=== PATIENT | male | born 1955 | race Caucasian/White ===

== ENCOUNTER → 2018-10-19 10:05 | Outpatient (CLI) | payer OTHER, SELFPAY ==
[2018-10-17 09:02] VITALS: BMI 18.8
--- NOTE | 2018-10-19 10:06 | NM_ITS ---
CLINICAL: 63-year-old male with apparent history of adenocarcinoma of unknown primary. WHOLE BODY 99m Tc MDP RADIONUCLIDE BONE SCINTIGRAPHY COMPARISON: None available FINDINGS: Following the intravenous administration of 26.0 mCi of 99m Tc MDP, whole body bone images reveal: 1. Increased radiopharmaceutical concentration is identified in the region of the third-fourth thoracic vertebra and distal left humeral metaphysis. 2. Enhanced tracer concentration is demonstrated in the sternoclavicular compartment of the left shoulder, acromioclavicular compartments of both shoulders, the left hip. 3. The remaining skeletal structures are scintigraphically unremarkable with normal-appearing renal images and urinary bladder activity identified. NM/Bone Scan Whole Body IMPRESSION: 1. The increase in radiopharmaceutical concentration defined in the third-fourth thoracic vertebra and distal left humeral metaphysis may be further investigated with plain film radiography secondary to the intensity of uptake. 2. Degenerative arthritis is otherwise expressed in the bilateral shoulders, the left hip. Electronically Signed: Jerman Upton DO at 10:54 EDT Tel , Service support ,
== END ==
PROVIDERS: Family Provider Internal Medicine Infectious Disease; PCP Internal Medicine Infectious Disease; Referring Provider Internal Medicine Medical Oncology; Visit Provider Internal Medicine Medical Oncology
DX: C80.1 Malignant (primary) neoplasm, unspecified (principal); R63.4 Abnormal weight loss
CPT/HCPCS: 78306

== ENCOUNTER → 2018-10-24 08:22 | Outpatient (CLI) | payer OTHER, SELFPAY ==
[2018-10-17 09:02] VITALS: BMI 18.8
--- NOTE | 2018-10-24 08:27 | CT_ITS ---
STUDY: CT CHEST WITH CONTRAST REASON FOR EXAM: Male, 63 years old. Liver metastases. Unknown primary. RADIATION DOSAGE (If Supplied By Facility): CTDIvol = ( 13.08 ) mGy, DLP = ( 772.13 ) mGycm TECHNIQUE: Transaxial imaging was performed following intravenous administration of 100 IV Isovue 300. Multiplanar coronal and sagittal images were reformatted. Individualized dose optimization techniques were used for this CT. COMPARISON: Bone scan, October 19, 2018. CT of the abdomen and pelvis, October 24, 2018. FINDINGS: The lungs are hyperexpanded. There is no visualized mass or infiltrate within the lungs.. There is no demonstrated pleural abnormality. Normal heart and pericardium. There is prevascular and precarinal lymphadenopathy. The largest node, in the precarinal region, measures 1.5 x 0.7 x 0.8 cm. Normal hilar regions. Normal enhanced pulmonary arteries. Normal aorta arch and descending thoracic aorta. There are multi-level degenerative changes of the thoracic spine. There is a soft tissue mass in the left lateral aspect of C3 extending into the posterior elements. This is thought to correlate with the increased activity seen in this area on the bone scan. There is compromise on the left L3-4 neural foramen. In slight transverse narrowing of the spinal canal. There is also expansion of the right humeral neck with thinning of the anterior cortex. No abnormal activity is seen in this area on the bone scan. There is thickening of the distal esophagus versus hiatal hernia. This appears to extend area of the GE junction. Evaluation with endoscopy or barium swallow is recommended. There are multiple hypoechoic foci within the liver consistent with metastatic disease. CT/Chest WITH Contrast IMPRESSION: 1. Hyperexpansion of the lungs. Question mild emphysematous change. There is no mass or infiltrate. 2. Nonspecific mediastinal lymphadenopathy. 3. Expansile lesion within the L3 vertebral body extending into the posterior elements consistent with metastatic disease. 4. Mild cortical thinning of the upper right humerus with questionable expansion of the humeral neck. No abnormality is seen in the bone scan this area. 5. Thickened distal esophagus/GE junction. See recommendation above. 6. Diffuse hepatic metastases. Electronically Signed: Adi Hopkins DO at 17:21 EDT Tel [phone], Service support ,
--- NOTE | 2018-10-24 08:27 | CT_ITS ---
STUDY: CT ABDOMEN AND PELVIS WITH CONTRAST REASON FOR EXAM: Male, 63 years old. Liver metastases with unknown primary. RADIATION DOSAGE (If Supplied By Facility): CTDIvol = ( 13.08 ) mGy, DLP = ( 772.13 ) mGycm TECHNIQUE: Transaxial images were obtained from the dome of the diaphragm to the symphysis pubis with oral contrast. 100 IV/Oral Isovue 300 was administered. Sagittal and coronal images were reconstructed. Individualized dose optimization techniques were used for this CT. COMPARISON: CT of the chest, October 24, 2018. Bone scan, October 19, 2018 FINDINGS: Question mild emphysematous changes lung bases. The visualized portions of the heart are within normal limits. The liver is mildly prominent in size. There are multiple hypoechoic masses throughout the liver consistent with metastatic disease. The largest conglomerate mass, in the left lateral lobe of the liver measures 2.5 x 5.3 x 5.4 cm. There is no enhancing mass although minimal internal enhancement is seen within some of the masses. Normal gallbladder and extrahepatic biliary system. Normal spleen. Normal pancreas. Normal bilateral adrenal glands. Normal right kidney. Normal left kidney. There is a hiatal hernia versus thickening of the distal esophageal wall and GE junction. The distal stomach appears grossly normal. Normal small intestine. There is feces throughout the nondistended colon without evidence of mass or obstruction. The appendix is visualized and appears normal. There is diffuse atherosclerotic calcification of the abdominal aorta, without a demonstrated aneurysm. Normal inferior vena cava. Normal retroperitoneum. Normal urinary bladder. Prostate is mildly enlarged. Prominent seminal vesicles. There is no pelvic lymphadenopathy. No free air or free fluid is seen within the peritoneal cavity. Normal abdominal wall. There are degenerative changes of the lumbar spine and hips. No bony metastases are noted. CT/Abdomen/Pelvis WITH Contrast IMPRESSION: 1. Multiple low-attenuation masses in the liver suspicious for metastatic disease. 2. Thickened distal esophagus versus hiatal hernia. This would be better evaluated with barium swallow or endoscopy. 3. Large amount of colonic feces without obstruction. Question constipation. 4. Mild emphysematous changes of the lung bases. 5. Degenerative changes lumbar spine and hips. 6. Mild atherosclerotic changes of the aorta. 7. Mildly enlarged prostate. Electronically Signed: Adi Hopkins DO at 16:51 EDT Tel [phone], Service support ,
== END ==
PROVIDERS: Family Provider Internal Medicine Infectious Disease; PCP Internal Medicine Infectious Disease; Referring Provider Internal Medicine Medical Oncology; Visit Provider Internal Medicine Medical Oncology
DX: C80.1 Malignant (primary) neoplasm, unspecified (principal); R63.4 Abnormal weight loss
CPT/HCPCS: 71260; 74177; Q9967

== ENCOUNTER → 2018-10-26 11:08 | Outpatient (CLI) | payer OTHER, SELFPAY ==
[2018-10-17 09:02] VITALS: BMI 18.8
--- NOTE | 2018-10-26 11:08 | MRI_ITS ---
STUDY: MRI THORACIC SPINE WITH AND WITHOUT CONTRAST REASON FOR EXAM: Male, 63 years old. Adenocarcinoma with bone metastases TECHNIQUE: 13 IV Dotarem was administered for the contrast portion of the examination. COMPARISON: CT chest 10/24/2018 and bone scan 10/19/2018. FINDINGS: Again seen is a lytic, enhancing mass in the left T3 vertebral body extending into the left pedicle, lamina and proximal left transverse process. Enhancing mass extends into the left lateral epidural space causing mild central canal narrowing and complete effacement of the T3-T4 left neural foramen. The right neural foramen is patent. The remaining osseous structures are normal in appearance. These findings correspond to recent bone scan and CT chest. Normal kyphosis of the thoracic spine. There is no substantial scoliosis. T1-2, T2-3, T4-5, T5-6, T6-7, T7-8, T8-9, T9-10, T10-11, T11-12: Normal endplates. Normal disc hydration, heights and morphology of the corresponding intervertebral discs. Normal central canal and intervertebral neural foramina at the corresponding levels. Normal visualized thoracic cord. The soft tissue structures are unremarkable. MRI/Spine Thoracic W/WO Contrast IMPRESSION: 1. Lytic, enhancing osseous metastasis in the left T3 vertebral body extending into the left pedicle, lamina and proximal left transverse process. Metastasis extends into the left lateral epidural space causing mild central canal narrowing and complete effacement of the T3-T4 left neural foramen. The right neural foramen is patent. The remaining osseous structures are normal in appearance. 2. There is no cord compression. Electronically Signed: Jenn Juan, at 13:55 EDT Tel , Service support ,
== END ==
PROVIDERS: Family Provider Internal Medicine Infectious Disease; PCP Internal Medicine Infectious Disease; Referring Provider Internal Medicine Medical Oncology; Visit Provider Internal Medicine Medical Oncology
DX: C80.1 Malignant (primary) neoplasm, unspecified (principal); R63.4 Abnormal weight loss
CPT/HCPCS: 72157; A9575

== ENCOUNTER → 2018-11-01 13:21 | Outpatient (CLI) | payer OTHER, SELFPAY ==
[2018-10-17 09:02] VITALS: BMI 18.8
[2018-10-26 13:10] VITALS: BMI 18.6
[2018-10-27 07:59] VITALS: BMI 17.3
--- NOTE | 2018-11-01 13:23 | MRI_ITS ---
STUDY: MRI BRAIN WITH AND WITHOUT CONTRAST REASON FOR EXAM: Male, 63 years old. Adenocarcinoma. Unknown primary. Lytic bone metastases to the left T3 vertebral body extending to the left pedicle, lamina and transverse process on MRI thoracic spine of 10/26/2018. TECHNIQUE: Standardized multiplanar fat and water weighted pulse sequences were obtained. 12 IV Dotarem was administered for the contrast portion of the examination. COMPARISON: None. FINDINGS: No restricted diffusion to suspect acute or subacute ischemic infarct. No focal signal abnormalities throughout the brain parenchyma. Normal size of the ventricles and extra-axial spaces for the patient's age. Normal white matter tracts of the supratentorial brain. Normal bilateral basal ganglia. Normal thalami. There is no extra-axial fluid accumulation. Normal flow voids within the major intracranial circulation suggesting patency by spin echo criteria. Normal venous enhancement. There is no enhancing intra-axial or extra-axial abnormality. Normal sella turcica, pituitary gland, infundibular stalk, optic chiasm and hypothalamus. Normal tectal plate and pineal gland. Normal midbrain, jocelyne and medulla. Normal cerebellum. Normal basal cisterns. Normal bilateral temporal bones. Normal bilateral internal auditory canals. No demonstrated orbital abnormality, within the constraints of a routine brain study. Normal visualized paranasal sinuses. Normal calvarium and skull base. Normal visualized soft tissue structures. Normal visualized upper cervical spine. MRI/Brain W/WO Contrast IMPRESSION: 1. No MRI evidence of intracranial metastatic disease. 2. Normal MRI of the brain with and without contrast. Electronically Signed: tSanislav He MD at 11:03 EDT , Service support ,
--- NOTE | 2018-11-01 13:23 | MRI_ITS ---
STUDY: MRI CERVICAL SPINE WITH AND WITHOUT CONTRAST REASON FOR EXAM: Male, 63 years old. Adenocarcinoma. Unknown primary. Lytic bone metastases at T3. TECHNIQUE: Standardized fat and water weighted pulse sequences were obtained in the sagittal and axial following administration of 12 IV Dotarem. COMPARISON: None FINDINGS: Normal foramen magnum and brainstem-cervical cord junction. Normal craniovertebral junction. Normal anterior atlantoaxial articulation. Normal odontoid process. Normal cervical lordosis. Abnormal T1 hypointensity involving the T3 vertebral body via left T3 pedicle and lamina and extending to the left T3 superior articular facet, left T3 inferior articular facet and left lateral extradural space. No abnormal T1 hypointensities of the cervical spine. C2-3: Normal endplates. Small posterior bulging disc. Normal central canal and intervertebral neural foramina. C3-4: Normal endplates. Normal disc height, signal and morphology. Normal central canal and intervertebral neural foramina. C4-5: Normal endplates. Minimal disc space narrowing. Small posterior midline disc protrusion. Mild central canal stenosis. Normal bilateral intervertebral neural foramina. C5-6: Normal endplates. Right posterior marginal spur. Normal disc height and morphology. Normal central canal. Mild stenosis of the right intervertebral neural foramen. Normal left intervertebral neural foramen. C6-7: Normal endplates. Normal disc height, signal and morphology. Normal central canal and intervertebral neural foramina. C7-T1: Normal endplates. Normal disc height, signal and morphology. Normal central canal and intervertebral neural foramina. T1-T2: (Sagittal only). Normal endplates. Normal disc height and morphology. Normal central canal and bilateral intervertebral neural foramina. T2-T3: Normal T2 inferior endplate. T1 hypointensity replacing the entire T3 vertebral body and expansile T1 hypointensity lesion of the left T3 pedicle extending to the left T3 superior articular facet and left T3 inferior articular facet. The left lateral extradural mass effect associated with this expansile lesion is better seen on the MRI of the thoracic spine axial views. Normal cervical cord. No abnormal enhancing lesions in the cervical spine. There is abnormal contrast enhancement of the T1 hyperintensity involving the T3 vertebral body, the left T3 pedicle, the left T3 lamina of the left C3 superior articular facet, the left T3 inferior articular facet on the left lateral extra dural extension of the T3 expansile lesion. MRI/Spine Cervical W/WO Contrast IMPRESSION: 1. No MRI evidence of metastatic disease to the cervical spine but there is metastatic enhancing lytic lesion involving the T3 vertebral body, left T3 pedicle, left T3 superior ticker facets and the lytic expansile metastases to the left lateral extradural space of T3. 2. No MRI evidence of cervical extruded disc fragment. 3. Small posterior midline disc protrusion at C4-C5 disc level with mild central canal stenosis. 4. Small C3-C3 posterior bulging disc. 5. Right C5-C6 posterior marginal spur and mild stenosis of the right C5-C6 intervertebral neural foramen. Electronically Signed: Stanislav He MD at 11:34 EDT , Service support ,
--- NOTE | 2018-11-01 13:23 | MRI_ITS ---
STUDY: MRI LUMBAR SPINE WITH AND WITHOUT CONTRAST REASON FOR EXAM: Male, 63 years old. Adenocarcinoma of unknown primary. T3 bone metastases. TECHNIQUE: Standardized fat and water weighted pulse sequences were obtained in the sagittal and axial planes. 12 IV Dotarem was administered for the contrast portion of the examination. COMPARISON: CT abdomen and pelvis with contrast 10/24/2018. FINDINGS: No abnormal T1 hypointensity lesions suspect for suggest bone metastases. Small L1 benign vertebral body hemangioma. T11-T12: (Sagittal only). Normal endplates. Normal disc height, hydration and morphology. Normal central canal and bilateral intervertebral neural foramina. T12-L1: (Sagittal only). Normal endplates. Normal disc height, hydration and morphology. No ventral extradural defect. Normal central canal and bilateral intervertebral neural foramina. Normal lumbar lordosis. There is no substantial scoliosis. Normal conus medullaris that terminates at the mid L2 vertebral body level. L1-2: Tiny Schmorl's node in the anterior aspect of the L1 inferior endplate mild to reactive a focal fatty changes of the underlying marrow. Normal L2 superior endplate. Normal disc height and morphology. Normal central canal and bilateral lateral recesses. Normal facet joints. Normal bilateral intervertebral neural foramina. L2-3: Normal endplates. Normal disc height, hydration and morphology. Normal bilateral facet joints. Normal central canal and bilateral lateral recesses. Normal bilateral intervertebral neural foramina. L3-4: Normal endplates. Normal disc height with mild loss of disc hydration. No ventral extradural defect. Normal central canal and bilateral lateral recesses. Mild bilateral degenerative facet arthropathy. Normal bilateral intervertebral neural foramina. L4-5: Normal endplates. Normal disc height, hydration and morphology. Normal bilateral facet joints. Normal central canal and bilateral lateral recesses. Normal bilateral intervertebral neural foramina. L5-S1: Mild Modic type II degenerative vertebral marrow fatty changes underneath the left side of the vertebral endplates. Mild disc space height narrowing. Prominent anterior disc protrusion. No ventral extradural defect. Normal central canal and bilateral lateral recesses. Mild degenerative facet arthropathy. Normal bilateral intervertebral neural foramina. Normal visualized sacral ala. Normal visualized paraspinous soft tissue structures. No abnormal enhancing lesions extradurally and intradurally. MRI/Spine Lumbar W/WO Contrast IMPRESSION: 1. No MRI evidence of metastatic disease to the lumbar spine. 2. Prominent anterior disc protrusion at L5-S1 disc space level, mild bilateral degenerative facet arthropathy and mild Modic type II degenerative vertebral marrow fatty changes underneath the left side of the vertebral endplates. 3. No MRI evidence of lumbar extruded disc fragment. 4. Mild bilateral L3-L4 degenerative facet arthropathy. 5. Small left-sided L1 benign vertebral body hemangioma. Electronically Signed: Stanislav He MD at 11:48 EDT , Service support ,
== END ==
PROVIDERS: Family Provider Internal Medicine Infectious Disease; PCP Internal Medicine Infectious Disease; Referring Provider Internal Medicine Medical Oncology; Visit Provider Internal Medicine Medical Oncology
DX: C80.1 Malignant (primary) neoplasm, unspecified (principal); R63.4 Abnormal weight loss
CPT/HCPCS: 70553; 72156; 72158; A9575